=== PATIENT | female | born 1955 | race Caucasian/White ===

== ENCOUNTER 2018-07-27 18:33 | Inpatient (IN) | payer OTHER ==
[~2018-07-27] VITALS: Ht 172.7 cm; Wt 114.9 kg
[2018-07-27 19:33] LABS: Basophils # (auto) 0.1 uL; Basophils % (auto) 0.8 % (0.0-2.0); Eosinophils # (auto) 0.1 uL; Eosinophils % (auto) 1.6 % (0.0-7.0); Hematocrit 44.5 % (36.0-46.0); Hemoglobin 15.2 g/dL (12.2-16.2); Lymphocytes # (auto) 1.7 uL; Lymphocytes % (auto) 22.2 % (10.0-50.0); Mean Corpuscular Hemoglobin 28.7 pg (28.0-32.0); Mean Corpuscular Hgb Conc. 34.2 g/dL (32.0-36.0); Mean Corpuscular Volume 83.9 fL (80.0-100.0); Monocytes # (auto) 0.6 uL; Monocytes % (auto) 7.3 % (0.0-12.0); Neutrophils # (auto) 5.3 uL; Neutrophils % (auto) 68.1 % (37.0-80.0); Nucleated Red Blood Cells % 0.1 %; Platelet Count (auto) 178 10^3/uL (140-450); Red Blood Cells 5.31 10^6/uL (4.0-5.20); Red Cell Distribution Width 13.4 % (11.8-14.3); White Blood Cell 7.8 10^3/uL (4.4-10.8)
[2018-07-27 19:58] LABS: Albumin 3.6 g/dL (3.4-5.0); BUN/Creatinine Ratio 20.5; Bilirubin, Total 0.3 mg/dL (0.2-1.0); Calcium 8.8 mg/dL (8.5-10.1); Magnesium 2.4 mg/dL (1.6-2.6); Potassium 3.7 mmol/L (3.5-5.1); Total Protein 7.4 g/dL (6.4-8.2)
[2018-07-27] MEDS ORDERED: DILTIAZEM HCL 25 MG/5 ML VIAL IV ONE (20:15)
[2018-07-27] MEDS ORDERED: MORPHINE SULF INJ 2 MG/ML SYRINGE 1ML IV PRN ×2 (23:00)
[2018-07-27] MEDS ORDERED: ONDANSETRON HCL 4 MG/2 ML VIAL IV PRN (23:00)
[2018-07-27] MEDS ORDERED: HYDROcodone-ACET 5/325MG TAB PO PRN (23:00)
[2018-07-27] MEDS ORDERED: ACETAMINOPHEN 500 MG TAB PO PRN (23:00)
[2018-07-27] MEDS ORDERED: DEXTROSE (50%) 50ML SYRG IV PRN (23:00)
[2018-07-27] MEDS ORDERED: NITROGLYCERIN 0.4 MG SL TAB SL PRN (23:00)
[2018-07-27] MEDS ORDERED: ASPirin 81 mg TAB PO ONE (23:15)
[2018-07-27] MEDS ORDERED: ENOXAPARIN SOD 80 MG/0.8ML SYRINGE SC ONE (23:45)
[2018-07-28 02:00] VITALS: BP 110/71
[2018-07-28 05:00] VITALS: BP 122/58
[2018-07-28] MEDS ORDERED: PNEUMOCOCCAL VACC POLYS 25 MCG/0.5 ML VIAL IM ONE (06:00)
[2018-07-28] MEDS: ACCU-CHEK COMFORT CURVE STRIP VI SCH ×4 (06:46→23:10)
[2018-07-28] MEDS: glipiZIDE 5 MG TAB PO SCH ×2 (06:58→17:19)
[2018-07-28] MEDS: InsuLIN REG 1unit/0.01ml Soln (100units/ml) SC SCH ×3 (06:58→17:00)
[2018-07-28 07:01] LABS: Basophils # (auto) 0 uL; Basophils % (auto) 0.6 % (0.0-2.0); Eosinophils # (auto) 0.2 uL; Hematocrit 42.4 % (36.0-46.0); Hemoglobin 14.4 g/dL (12.2-16.2); Lymphocytes # (auto) 2.3 uL; Lymphocytes % (auto) 35.6 % (10.0-50.0); Mean Corpuscular Hemoglobin 28.6 pg (28.0-32.0); Mean Corpuscular Volume 83.9 fL (80.0-100.0); Monocytes # (auto) 0.6 uL; Monocytes % (auto) 9.5 % (0.0-12.0); Neutrophils # (auto) 3.2 uL; Neutrophils % (auto) 51.3 % (37.0-80.0); Nucleated Red Blood Cells % 0.2 %; Platelet Count (auto) 182 10^3/uL (140-450); Red Blood Cells 5.06 10^6/uL (4.0-5.20); Red Cell Distribution Width 13.5 % (11.8-14.3); White Blood Cell 6.3 10^3/uL (4.4-10.8)
[2018-07-28 07:21] LABS: Alanine Aminotransferase 32 U/L (13-56); Albumin 3.5 g/dL (3.4-5.0); Alkaline Phosphatase 102 U/L (45-117); Anion Gap 5 (5-15); Aspartate Aminotransferase 21 U/L (15-37); BUN/Creatinine Ratio 22.4; Bilirubin, Total 0.8 mg/dL (0.2-1.0); Blood Urea Nitrogen 19 mg/dL (7-18); Calcium 8.6 mg/dL (8.5-10.1); Carbon Dioxide 25 mmol/L (21-32); Chloride 110 mmol/L (98-107); Cholesterol 166 mg/dL (< 200); GFR African American 87 mL/min; GFR Non-African American 72 mL/min; Glucose 147 mg/dL (74-106); HDL Cholesterol 45 mg/dL (40-59); LDL Cholesterol 106 mg/dL (< 100); Potassium 3.5 mmol/L (3.5-5.1); Sodium 140 mmol/L (136-145); Total Protein 6.9 g/dL (6.4-8.2); Triglycerides 173 mg/dL (< 150)
[2018-07-28 08:00] VITALS: BP 129/62
[2018-07-28] MEDS: ASPirin-EC 81 mg tab PO SCH (09:50)
[2018-07-28] MEDS: ENOXAPARIN SOD 80 MG/0.8ML SYRINGE SC SCH ×2 (09:51→23:09)
[2018-07-28] MEDS: METOPROLOL TARTRATE 25 MG TAB PO SCH ×2 (09:51→23:07)
[2018-07-28 09:55] LABS: Urine Bacteria FEW /hpf (None Seen); Urine Blood 1+ /uL (Negative); Urine Hyaline Cast FEW /lpf (0 - 2); Urine Mucus FEW (None Seen); Urine Specific Gravity 1.025 (1.001-1.035); Urine WBC 184 /hpf (0 - 5)
[2018-07-28 12:00] VITALS: BP 114/53
[2018-07-28] MEDS ORDERED: cefTRIAXone 1GM/10ml IVPUSH 10 ML IV ONE (12:30)
[2018-07-28] MEDS: LISINOPRIL 20 MG TAB PO SCH (13:10)
[2018-07-28 16:58] VITALS: BP 109/59
[2018-07-28 22:00] VITALS: BP 111/53
[2018-07-28] MEDS ORDERED: ATORVASTATIN 20 MG TAB PO SCH (22:00)
[2018-07-28] MEDS ORDERED: InsuLIN REG 1unit/0.01ml Soln (100units/ml) SC SCH (22:00)
[2018-07-28] MEDS ORDERED: DIGOXIN 0.25 MG TAB PO ONE (23:45)
[2018-07-29 05:00] VITALS: BP 114/55
[2018-07-29] MEDS: glipiZIDE 5 MG TAB PO SCH (06:13)
[2018-07-29] MEDS: InsuLIN REG 1unit/0.01ml Soln (100units/ml) SC SCH ×2 (06:13→11:30)
[2018-07-29] MEDS: ACCU-CHEK COMFORT CURVE STRIP VI SCH ×2 (06:14→14:43)
[2018-07-29 08:00] VITALS: BP 114/55
[2018-07-29] MEDS ORDERED: cefTRIAXone 1GM/10ml IVPUSH 10 ML IV SCH (09:00)
[2018-07-29 09:20] VITALS: BP 134/68
[2018-07-29] MEDS: ASPirin-EC 81 mg tab PO SCH (09:54)
[2018-07-29] MEDS: METOPROLOL TARTRATE 25 MG TAB PO SCH (09:56)
[2018-07-29] MEDS: ENOXAPARIN SOD 80 MG/0.8ML SYRINGE SC SCH (09:57)
[2018-07-29] MEDS: LISINOPRIL 20 MG TAB PO SCH (09:57)
[2018-07-29] MEDS ORDERED: DIGOXIN 0.125 MG TAB PO SCH (10:00)
[2018-07-29 11:54] VITALS: BP 101/54
[2018-07-29 14:14] VITALS: BP 104/45
== END 2018-07-29 15:00 | disposition home or self-care (01) | DRG 309 ==
LOC: ER 18:41 → TELE 18:42 → TELE-WESTW 23:51
PROVIDERS: ADMIT Nurse Practitioner Family; ATTEND Family Medicine
DX: I48.91 Unspecified atrial fibrillation (principal); N39.0 Urinary tract infection, site not specified; E11.9 Type 2 diabetes mellitus without complications; E78.00 Pure hypercholesterolemia, unspecified; Z23 Encounter for immunization; Z79.899 Other long term (current) drug therapy; Z90.49 Acquired absence of other specified parts of digestive tract
CPT/HCPCS: 36415; 71045; 80053; 80061; 81001; 82962; 83036; 83735; 84443; 84484; 85025; 87040; 87086; 93005; 93306; 96372; 96374; 96375; J0696

== ENCOUNTER 2018-08-09 16:35 | Inpatient (IN) | payer OTHER ==
[~2018-08-09] VITALS: Ht 160 cm; Wt 115.3 kg
[2018-08-09] MEDS ORDERED: SODIUM CHLORIDE 0.9% 1,000 ML IV ONE (16:50)
[2018-08-09 17:36] LABS: Basophils # (auto) 0.1 uL; Basophils % (auto) 0.8 % (0.0-2.0); Eosinophils # (auto) 0.2 uL; Hematocrit 42.9 % (36.0-46.0); Hemoglobin 14.7 g/dL (12.2-16.2); Lymphocytes # (auto) 1.8 uL; Lymphocytes % (auto) 25.7 % (10.0-50.0); Mean Corpuscular Hemoglobin 28.7 pg (28.0-32.0); Mean Corpuscular Hgb Conc. 34.2 g/dL (32.0-36.0); Mean Corpuscular Volume 83.9 fL (80.0-100.0); Monocytes # (auto) 0.5 uL; Monocytes % (auto) 7.6 % (0.0-12.0); Neutrophils # (auto) 4.4 uL; Neutrophils % (auto) 62.9 % (37.0-80.0); Nucleated Red Blood Cells % 0.1 %; Platelet Count (auto) 167 10^3/uL (140-450); Red Blood Cells 5.11 10^6/uL (4.0-5.20); Red Cell Distribution Width 13.1 % (11.8-14.3); White Blood Cell 7.1 10^3/uL (4.4-10.8)
[2018-08-09 17:56] LABS: INR 0.98 (0.9-1.15); Partial Thromboplastin Time 26.8 sec (23.78-33.04); Prothrombin Time 10.5 sec (9.27-12.13)
[2018-08-09] MEDS ORDERED: DIGOXIN 0.25 MG TAB PO ONE (18:00)
[2018-08-09] MEDS ORDERED: ACETAMINOPHEN 500 MG TAB PO PRN (18:00)
[2018-08-09] MEDS ORDERED: ONDANSETRON HCL 4 MG/2 ML VIAL IV PRN (18:00)
[2018-08-09] MEDS ORDERED: NITROGLYCERIN 0.4 MG SL TAB SL PRN (18:00)
[2018-08-09] MEDS ORDERED: LACTULOSE 20Gm/30ML SOLN PO PRN (18:00)
[2018-08-09] MEDS ORDERED: HYDROcodone-ACET 5/325MG TAB PO PRN (18:00)
[2018-08-09] MEDS ORDERED: DEXTROSE (50%) 50ML SYRG IV PRN (18:00)
[2018-08-09] MEDS ORDERED: TEMAZEPAM 15 MG CAP PO PRN (18:00)
[2018-08-09] MEDS ORDERED: LORazepam 0.5 MG TAB PO PRN (18:00)
[2018-08-09] MEDS ORDERED: MORPHINE SULF INJ 2 MG/ML SYRINGE 1ML IV PRN ×2 (18:00)
[2018-08-09 18:29] LABS: Alanine Aminotransferase 77 U/L (13-56); Albumin 3.7 g/dL (3.4-5.0); Alkaline Phosphatase 116 U/L (45-117); Anion Gap 6 (5-15); Aspartate Aminotransferase 43 U/L (15-37); Bilirubin, Total 0.5 mg/dL (0.2-1.0); Calcium 9.3 mg/dL (8.5-10.1); Carbon Dioxide 24 mmol/L (21-32); Chloride 111 mmol/L (98-107); GFR African American 104 mL/min; GFR Non-African American 86 mL/min; Glucose 134 mg/dL (74-106); Magnesium 2.5 mg/dL (1.6-2.6); Potassium 3.6 mmol/L (3.5-5.1); Sodium 141 mmol/L (136-145); Total Protein 7.4 g/dL (6.4-8.2)
[2018-08-09 18:38] LABS: BUN/Creatinine Ratio 23.3; Blood Urea Nitrogen 17 mg/dL (7-18)
[2018-08-09] MEDS: SODIUM CHLORIDE 0.9% 1,000 ML IV SCH (18:41)
[2018-08-09 18:49] LABS: Urine Bacteria NONE SEEN /hpf (None Seen); Urine Blood Negative /uL (Negative); Urine Specific Gravity 1.003 (1.001-1.035); Urine WBC 10 /hpf (0 - 5)
[2018-08-09 19:08] LABS: Alcohol, Urine < 3.0 mg/dL (0-5); Amphetamine Screen, Urine NEGATIVE (NEGATIVE); Barbiturate Scree,Urine NEGATIVE (NEGATIVE); Benzodiazephine Screen, Urine NEGATIVE (NEGATIVE); Cannabinoid Screen, Urine NEGATIVE (NEGATIVE); Cocaine Screen, Urine NEGATIVE (NEGATIVE); Opiate Scree,Urine NEGATIVE (NEGATIVE); Phencyclidine Screen, Urine NEGATIVE (NEGATIVE)
[2018-08-09 19:30] VITALS: BP 111/70
[2018-08-09] MEDS ORDERED: IOHEXOL 350 MG/ML 100ML IJ ONE (19:30)
[2018-08-09 20:00] VITALS: BP 111/70
[2018-08-09] MEDS: METOPROLOL TARTRATE 25 MG TAB PO SCH (21:26)
[2018-08-09] MEDS: NITROFURANTOIN (MONO) 100 mg CAP PO SCH (21:26)
[2018-08-09] MEDS: ATORVASTATIN 20 MG TAB PO SCH (21:27)
[2018-08-09] MEDS: ENOXAPARIN SOD 120 MG/0.8 ML SYRINGE SC SCH (21:27)
[2018-08-09] MEDS: InsuLIN REG 1unit/0.01ml Soln (100units/ml) SC SCH (21:51)
[2018-08-09] MEDS: ACCU-CHEK COMFORT CURVE STRIP VI SCH (21:51)
[2018-08-09 22:00] VITALS: BP 111/70
[2018-08-09] MEDS ORDERED: ENOXAPARIN SOD 60 MG/0.6 ML SYRINGE SC SCH (22:00)
[2018-08-09] MEDS ORDERED: ATO40T PO (23:45)
[2018-08-09] MEDS ORDERED: METO25TA5 PO (23:45)
[2018-08-09] MEDS ORDERED: ASPI81TA27 PO (23:45)
[2018-08-10 04:35] VITALS: BP 115/65
[2018-08-10] MEDS: InsuLIN REG 1unit/0.01ml Soln (100units/ml) SC SCH ×4 (06:12→23:45)
[2018-08-10] MEDS: ACCU-CHEK COMFORT CURVE STRIP VI SCH ×4 (06:13→23:45)
[2018-08-10] MEDS: SODIUM CHLORIDE 0.9% 1,000 ML IV SCH ×3 (07:11→23:43)
[2018-08-10 08:39] VITALS: BP 117/63
[2018-08-10] MEDS: METOPROLOL TARTRATE 25 MG TAB PO SCH ×2 (10:00→23:44)
[2018-08-10] MEDS ORDERED: DIGOXIN 0.25 MG TAB PO SCH (10:00)
[2018-08-10] MEDS ORDERED: ASPirin 81 mg TAB PO SCH (10:00)
[2018-08-10] MEDS: NITROFURANTOIN (MONO) 100 mg CAP PO SCH ×2 (10:00→23:44)
[2018-08-10] MEDS: ENOXAPARIN SOD 120 MG/0.8 ML SYRINGE SC SCH (10:00)
[2018-08-10] MEDS ORDERED: NITROGLYCERIN 0.2MG/HR TOPICAL PATCH TD SCH (10:00)
[2018-08-10] MEDS: PANTOPRAZOLE 40 MG TAB PO SCH (10:00)
[2018-08-10] MEDS: APIXABAN 5 MG TAB PO SCH ×2 (10:42→23:43)
[2018-08-10 11:28] LABS: Cholesterol 84 mg/dL (< 200); HDL Cholesterol 36 mg/dL (40-59); LDL Cholesterol 43 mg/dL (< 100); Triglycerides 155 mg/dL (< 150)
[2018-08-10 12:07] VITALS: BP 124/66
[2018-08-10 17:31] VITALS: BP 116/56
[2018-08-10 21:53] VITALS: BP 116/68
[2018-08-10] MEDS: ATORVASTATIN 20 MG TAB PO SCH (23:43)
[2018-08-10] MEDS: DRONEDARONE HCL 400 MG TAB PO SCH (23:44)
[2018-08-11 05:41] VITALS: BP 103/58
[2018-08-11] MEDS: InsuLIN REG 1unit/0.01ml Soln (100units/ml) SC SCH ×3 (06:38→17:00)
[2018-08-11] MEDS: ACCU-CHEK COMFORT CURVE STRIP VI SCH ×3 (06:38→17:00)
[2018-08-11 07:17] LABS: Albumin 3.1 g/dL (3.4-5.0); Calcium 8.3 mg/dL (8.5-10.1)
[2018-08-11 07:21] LABS: BUN/Creatinine Ratio 23.9; Bilirubin, Total 0.8 mg/dL (0.2-1.0); Total Protein 6.2 g/dL (6.4-8.2)
[2018-08-11 08:35] VITALS: BP 121/73
[2018-08-11] MEDS ORDERED: ADENOSINE 97 MG in GIVE UN-DILUTED 0 ML IV STA (08:49)
[2018-08-11] MEDS: METOPROLOL TARTRATE 25 MG TAB PO SCH (10:00)
[2018-08-11 10:26] VITALS: BP 46/62
[2018-08-11] MEDS: PANTOPRAZOLE 40 MG TAB PO SCH (12:24)
[2018-08-11] MEDS: APIXABAN 5 MG TAB PO SCH (12:24)
[2018-08-11] MEDS: DRONEDARONE HCL 400 MG TAB PO SCH (12:24)
[2018-08-11] MEDS: NITROFURANTOIN (MONO) 100 mg CAP PO SCH (12:24)
[2018-08-11 13:00] VITALS: BP 124/54
[2018-08-11] MEDS ORDERED: DRON400T PO (14:01)
[2018-08-11] MEDS ORDERED: APIX5TAB PO (14:01)
[2018-08-11 17:00] VITALS: BP 125/78
== END 2018-08-11 18:20 | disposition home or self-care (01) | DRG 309 ==
LOC: EDBD 16:35 → ER 16:35 → TELE 16:36 → TELE-CENTR 19:15
PROVIDERS: ADMIT Internal Medicine; ATTEND Internal Medicine
DX: I48.0 Paroxysmal atrial fibrillation (principal); D68.59 Other primary thrombophilia; N39.0 Urinary tract infection, site not specified; Z68.42 Body mass index [BMI] 45.0-49.9, adult; E11.9 Type 2 diabetes mellitus without complications; E66.01 Morbid (severe) obesity due to excess calories; E78.00 Pure hypercholesterolemia, unspecified; E78.5 Hyperlipidemia, unspecified; I11.9 Hypertensive heart disease without heart failure; Z80.0 Family history of malignant neoplasm of digestive organs; Z83.3 Family history of diabetes mellitus; Z90.49 Acquired absence of other specified parts of digestive tract; Z98.51 Tubal ligation status; Z82.49 Family history of ischemic heart disease and other diseases of the circulatory system; Z88.0 Allergy status to penicillin; Z88.8 Allergy status to other drugs, medicaments and biological substances; Z79.82 Long term (current) use of aspirin; Z79.899 Other long term (current) drug therapy
CPT/HCPCS: 36415; 71045; 71275; 78452; 80053; 80061; 80162; 80307; 81001; 82550; 82962; 83036; 83735; 83880; 84443; 84484; 85025; 85379; 85610; 85652; 85730; 86141; 87081; 87086; 93005; 93017; 96360; 96361; J0153

== ENCOUNTER 2018-10-09 22:02 | Emergency (ER) | payer OTHER ==
[~2018-10-09] VITALS: Ht 154.9 cm; Wt 99.8 kg
[~2018-10-09 22:02] MED LIST: APIX5TAB PO; ATO40T PO; DRON400T PO; METO25TA5 PO
[2018-10-09 23:43] LABS: Basophils # (auto) 0.1 uL; Basophils % (auto) 0.9 % (0.0-2.0); Eosinophils # (auto) 0.2 uL; Eosinophils % (auto) 3.1 % (0.0-7.0); Lymphocytes # (auto) 1.9 uL; Lymphocytes % (auto) 29.9 % (10.0-50.0); Mean Corpuscular Hgb Conc. 33.4 g/dL (32.0-36.0); Mean Corpuscular Volume 83.8 fL (80.0-100.0); Monocytes # (auto) 0.5 uL; Monocytes % (auto) 8.7 % (0.0-12.0); Neutrophils # (auto) 3.6 uL; Neutrophils % (auto) 57.4 % (37.0-80.0); Nucleated Red Blood Cells % 0.1 %; Platelet Count (auto) 168 10^3/uL (140-450); Red Blood Cells 5.37 10^6/uL (4.0-5.20); Red Cell Distribution Width 13.3 % (11.8-14.3); White Blood Cell 6.3 10^3/uL (4.4-10.8)
[2018-10-09 23:51] LABS: Alanine Aminotransferase 31 U/L (13-56); Albumin 3.6 g/dL (3.4-5.0); Anion Gap 6 (5-15); Aspartate Aminotransferase 15 U/L (15-37); BUN/Creatinine Ratio 17.5; Blood Urea Nitrogen 14 mg/dL (7-18); Carbon Dioxide 26 mmol/L (21-32); Chloride 107 mmol/L (98-107); GFR African American 93 mL/min; GFR Non-African American 77 mL/min; Glucose 146 mg/dL (74-106); Magnesium 2.3 mg/dL (1.6-2.6); Potassium 3.9 mmol/L (3.5-5.1); Sodium 139 mmol/L (136-145)
[2018-10-09 23:56] LABS: Alkaline Phosphatase 109 U/L (45-117); Bilirubin, Total 0.4 mg/dL (0.2-1.0); Total Protein 7.3 g/dL (6.4-8.2)
[2018-10-10] MEDS ORDERED: IBUPROFEN 400 MG TAB PO ONE (01:00)
[2018-10-10] MEDS ORDERED: CLINDAMYCIN HCL 150 MG CAP PO ONE (01:00)
[2018-10-10] MEDS ORDERED: HYDROcodone-ACET 7.5/325MG TAB PO ONE (01:00)
[2018-10-10] MEDS ORDERED: ASPirin 81 mg TAB PO ONE (01:15)
[2018-10-10] MEDS ORDERED: LORazepam 0.5 MG TAB PO ONE (01:15)
[2018-10-10 01:40] LABS: INR 0.99 (0.9-1.15); Prothrombin Time 10.6 sec (9.27-12.13)
[2018-10-10 03:30] VITALS: BP 121/61
== END 2018-10-10 03:30 | disposition home or self-care (01) ==
LOC: ER 22:02
DX: R07.9 Chest pain, unspecified (principal); I48.91 Unspecified atrial fibrillation; Z90.49 Acquired absence of other specified parts of digestive tract; Z88.0 Allergy status to penicillin; Z88.6 Allergy status to analgesic agent
CPT/HCPCS: 36415; 71046; 80053; 83735; 83880; 84443; 84484; 85025; 85610; 85730; 86308; 94761